=== PATIENT | male | born 1965 | race Caucasian/White ===

== ENCOUNTER 2016-12-27 06:09 | Day surgery (SDC) | payer BC ==
[2016-12-26 11:27] VITALS: BMI 22.7
[2016-12-27] MEDS ORDERED: LIDOCAINE 1%/EPI 1:100000 (50 ML MULTI DOSE VIAL) ONE (07:19)
[2016-12-27] MEDS ORDERED: BUPIVACAINE HCL/PF 0.5% (5MG/ML) 10 ML VIAL ONE (07:20)
[2016-12-27] MEDS ORDERED: MIDAZOLAM HCL 2 MG/2 ML SINGLE DOSE VIAL ONE (08:11)
[2016-12-27] MEDS ORDERED: PROPOFOL 20 ML ONE ×2 (08:15)
--- NOTE | 2016-12-27 08:28 | HP ---
[facility]ellite [facility] - Chief Complaint Chief Complaint: left knee pain - Past Medical History Allergies/Adverse Reactions: Allergies Allergy/AdvReac Type Severity Reaction Status Date / Time Neuromuscular Blockers, Allergy Mild Rash Verified 12/27/16 06:26 Steroidal [Steroidal Neuromuscular Blockers] - Current Medications Current Medications: Home Medications Medication Instructions Recorded Oxycodone HCl/Acetaminophen 1 - 2 tab PO Q6H #50 tab MDD 8 12/27/16 [Percocet 5-325 mg Tablet -] Satellite Physical Exam - Physical Examination Vital Signs: Vital Signs Period Temp Pulse Resp BP Sys/Delarosa Pulse Ox Last 24 Hr 98.5 F 86 18 105/69 97 General Appearance: Well Nourished, Well Developed, Alert & Oriented x3 ENT: Clear Lung: Normal air movement Heart: Regular rate & rhythm Extremities: Other (left knee- + swelling, + ttp, decr rom, + mcmurrays, +apleys , nvi MRI + mmt, lmt) Neurological: Intact, Alert, Oriented Satellite Impression/Plan - Impression/Plan Impression: left knee internal derangement Operative Procedure: left knee arthroscopy Date to be Performed: 12/27/16
[2016-12-27] MEDS ORDERED: LIDOCAINE 2%/EPINEPHRINE 1:100000 (50 ML MD VIAL) INF ONE (08:31)
[2016-12-27] MEDS ORDERED: BUPIVACAINE HCL/PF 0.5% (5MG/ML) 10 ML VIAL IJ ONE (08:31)
--- NOTE | 2016-12-27 08:59 | OP ---
Operative Note - Note: Operative Date: 12/27/16 ([facility]) Pre-Operative Diagnosis: left knee internal derangement Operation: left knee arthroscopy PMM, PLM Post-Operative Diagnosis: Same as Pre-op Surgeon: Justin Grimaldo [employer] Senior Sergeant: Dale Coello Anesthesia: General, Local Specimens Removed: shavings Estimated Blood Loss (mls): 5 Operative Report Dictated: Yes
[2016-12-27] MEDS ORDERED: ONDANSETRON 4 MG/2 ML VIAL IVPUSH PRN (09:13)
[2016-12-27] MEDS ORDERED: oxyCODONE HCL 5 MG TABLET PO PRN (09:13)
[2016-12-27] MEDS ORDERED: PROMETHAZINE HCL 25 MG/1 ML VIAL IVPUSH PRN (09:13)
[2016-12-27] MEDS ORDERED: LACTATED RINGERS SOLUTION 1,000 ML IV SCH (09:15)
[2016-12-27 10:07] VITALS: TEMP 98
[2016-12-27 12:45] VITALS: BP 124/82; PULSE 78
--- NOTE | 2016-12-27 14:06 | OP ---
DATE OF OPERATION: 12/27/2016 PREOPERATIVE DIAGNOSIS: Internal derangement left knee. POSTOPERATIVE DIAGNOSIS: Internal derangement left knee. PROCEDURE PERFORMED: Arthroscopy left knee with partial medial and lateral meniscectomy. SURGICAL ATTENDING: Justin Grimaldo MD MATERIALS HANDLING EQUIPMENT OPERATOR: Dale Coello ANESTHESIA: General with LMA. CLOSURE: 4-0 nylon. COMPLICATIONS: None. CONDITION: To the recovery room in stable condition. DESCRIPTION OF PROCEDURE: The patient was taken to the operating room on December 27, 2016. General anesthesia with LMA was administered by the anesthesiologist. The left lower extremity was prepped and draped in the usual sterile fashion. Superolateral, mediolateral and infrapatellar portal sites were infiltrated with 1% Xylocaine with epinephrine. A superolateral portal was made with a 15 blade, followed by a blunt trocar. The knee was aspirated and inflated with a cocktail of 10 mL of 1% Xylocaine, 10 mL of 0.5% Marcaine, 20 mL of arthroscopic saline. Medial and lateral infrapatellar portals were then made with a 15 blade, followed by a blunt trocar. The scope was placed in the lateral infrapatellar portal, up into the suprapatellar pouch. The pouch was visualized to be clean. The medial and lateral gutters were visualized to be clean. The undersurface of the patella and trochlea were found to be intact. With valgus stress on the knee, the medial compartment was entered. The medial meniscus was visualized, probed and found to have a big flap tear posteriorly. This was debrided back to smooth stable meniscal tissue using a meniscal biter and arthroscopic shaver. The medial femoral condyle was run and found to be intact, as was the medial tibial plateau. At 90 degrees, the ACL was visualized, probed and found to be intact. In the figure-4 position, the lateral compartment was entered. The lateral meniscus was found to have some radial tears of its mid substance. This was debrided back to smooth, stable meniscal tissue using meniscal biter and arthroscopic shaver. The lateral femoral condyle was run and found to be intact, as well as the lateral tibial plateau. The knee was irrigated with copious amounts of irrigation. The portals were closed using 4-0 nylon. Prior to closure, 20 mL of 0.5% Marcaine was infused through the outflow portal prior to pulling the trocar. A sterile pressure dressing was placed over the knee. The patient was awakened from anesthesia and transferred to the recovery room in stable condition, without complication. Estimated blood loss was negligible. Pam TOWNSEND/[id number] MTDD
--- NOTE | 2016-12-28 16:19 | PATH ---
Surgical Pathology Report Patient Name: MARIANA JORGENSEN [facility]. Rec. #: [id number] /Age/Gender: 1965 (Age: 51) / M Account: [id number] Location: [facility] SURGICAL Taken: 12/27/2016 Received: 12/27/2016 Reported: 12/28/2016 Physicians: Justin Grimaldo M.D. 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 Electronically Signed Hardeep Morillo M.D. Gross Description Received in formalin, labeled "left knee shavings" is a 3.0 x 2.5 x 0.4 cm aggregate of swift-yellow soft tissue fragments. A door to door sales representative portion is submitted in one cassette. /12/27/201612/27/2016
== END 2016-12-27 12:10 | disposition home or self-care (01) ==
LOC: JASU-SURG 06:09
PROVIDERS: ATTEND Orthopaedic Surgery
PROC: 0SBD4ZZ Excision of Left Knee Joint, Percutaneous Endoscopic Approach (ICD-10-PCS; 2016-12-27)
PROC: 0SBD4ZZ Excision of Left Knee Joint, Percutaneous Endoscopic Approach (ICD-10-PCS; principal; 2016-12-27 08:00)
DX: M23.201 Derangement of unspecified lateral meniscus due to old tear or injury, left knee (principal); M23.204 Derangement of unspecified medial meniscus due to old tear or injury, left knee
CPT/HCPCS: 88304-TC; 94760

== ENCOUNTER 2020-02-11 14:30 | Emergency (ER) | payer BC, OTHER ==
[2020-02-11 14:38] VITALS: BP 114/77; PULSE 79; TEMP 98.4; BMI 22.7
--- NOTE | 2020-02-11 14:52 | PDOC ---
History of Present Illness - General Chief Complaint: Chest Pain Stated Complaint: CHEST PAIN Time Seen by Provider: 02/11/20 14:51 History Source: Patient Exam Limitations: No Limitations - History of Present Illness Initial Comments: 02/11/20 15:06 54yM w PMHx current smoker presenting w 6d constant mild L anterior chest pressure. Mechanical fall 2wk ago on L side while cutting trees, no head trauma. Didnt take any meds for pain. never had similar chest pressure before. Extensive fam cardiac hx of [place]. Took 2 long car rides this past week. Denies leg swelling, fever, cough, n/v, SOB, ABD pain. Past History - Medical History Allergies/Adverse Reactions: Allergies Allergy/AdvReac Type Severity Reaction Status Date / Time Neuromuscular Blockers, Allergy Mild Rash Verified 02/11/20 14:37 Steroidal [Steroidal Neuromuscular Blockers] Home Medications: Ambulatory Orders Oxycodone HCl/Acetaminophen [Percocet 5-325 mg Tablet -] 1 - 2 tab PO Q6H #50 tab MDD 8 12/27/16 Anemia: No Asthma: No Cancer: No Cardiac Disorders: No CVA: No COPD: No CHF: No Dementia: No Diabetes: No GI Disorders: No Disorders: No HTN: No Hypercholesterolemia: No Liver Disease: No Seizures: No Thyroid Disease: No - Surgical History Neurologic Surgery: Yes (due to cerebral edema 2011) Orthopedic Surgery: Yes (LEFT KNEE/right) - Psycho-Social/Smoking History Smoking Status: Yes Smoking History: Current every day smoker Have you smoked in the past 12 months: Yes Number of Cigarettes Smoked Daily: 10 Information on smoking cessation initiated: No 'Breaking Loose' booklet given: 12/26/16 - Substance Abuse Hx (Audit-C & DAST Scrn) How often the patient has a drink containing alcohol: Monthly or less Number of drinks the patient has on a typical day: 3 or 4 How often the patient has six or more drinks on one occasion: Never Score: In Men: 4 or > Positive; In Women: 3 or > Positive: 2 Screen Result (Pos requires Nsg. Audit-10AR): Negative In the last yr the pt used illegal drug/Rx for NonMed reason: No Score: Yes response is considered Positive: 0 Screen Result (Positive result requires Nsg. DAST-10): Negative Cardiac Specific PMH - Complaint Specific PMHX Pacemaker: No Review of Systems - Review of Systems Constitutional: No: Chills, Fever HEENTM: No: Eye Pain, Nose Congestion Respiratory: No: Cough, Shortness of Breath Cardiac (ROS): Yes: Chest Pain. No: Palpitations ABD/GI: No: Abdominal Distended, Constipated, Diarrhea, Nausea, Vomiting : No: Burning, Dysuria Musculoskeletal: No: Back Pain, Joint Pain Integumentary: No: Bruising, Flushing Neurological: No: Headache, Seizure Psychiatric: No: Anxiety, Depression Endocrine: No: Intolerance to Cold, Intolerance to Heat Hematologic/Lymphatic: No: Anemia, Blood Clots *Physical Exam - Vital Signs Last Vital Signs Temp Pulse Resp BP Pulse Ox 98.4 F 79 18 114/77 100 02/11/20 14:34 02/11/20 14:34 02/11/20 14:34 02/11/20 14:34 02/11/20 14:34 - Physical Exam General Appearance: Yes: Nourished, Appropriately Dressed, Mild Distress HEENT: positive: EOMI, CARISSA, Normal Voice, Hearing Grossly Normal. negative: Scleral Icterus (R), Scleral Icterus (L) Respiratory/Chest: positive: Chest Tender (L anterior chest), Lungs Clear, Normal Breath Sounds. negative: Respiratory Distress, Crackles, Rales, Rhonchi, Stridor, Wheezing Cardiovascular: positive: Regular Rhythm, Regular Rate, S1, S2. negative: Edema, Murmur Gastrointestinal/Abdominal: positive: Normal Bowel Sounds, Flat, Soft. negative: Tender, Organomegaly Integumentary: positive: Normal Color, Warm. negative: Dry Neurologic: positive: Fully Oriented, Alert, Normal Mood/Affect, Normal Response, Responsive. negative: Confused, Disoriented Heart Score/ECG Review - History History: Slightly suspicious - Electrocardiogram EKG: Normal - Age Age: 45-65 - Risk Factors Risk Factors Heart Score: No Hx Hypercholesterolemia, No Hx Hypertension, No Hx Diabetes, Yes Smoking History, Yes Positive family hx of cardiac disease, No Hx Obesity Based on the list above the patient has:: 1-2 risk factors - Troponin Troponin: </= normal limit - Score Heart Score - Total: 2 ED Treatment Course - LABORATORY CBC & Chemistry Diagram: 02/11/20 03:40 02/11/20 03:40 - ADDITIONAL ORDERS Additional order review: Laboratory Results 02/11/20 02/11/20 03:40 03:40 D-Dimer 353 Sodium 143 Potassium 4.4 Chloride 112 H Carbon Dioxide 25 Anion Gap 5 L BUN 10.2 Creatinine 0.8 Est GFR (CKD-EPI)AfAm 116.56 Est GFR (CKD-EPI)NonAf 100.57 Random Glucose 62 L Calcium 8.7 Total Bilirubin 0.7 AST 43 H ALT 39 Alkaline Phosphatase 88 Creatine Kinase 181 Creatine Kinase Index 1.1 CK-MB (CK-2) 2.1 Troponin I < 0.02 Total Protein 7.2 Albumin 3.5 02/11/20 03:40 RBC 4.96 MCV 91.1 MCHC 33.7 RDW 13.6 D MPV 6.5 L Neutrophils % 53.3 Lymphocytes % 28.1 Monocytes % 13.4 H Eosinophils % 4.6 H Basophils % 0.6 - RADIOLOGY Radiology Studies Ordered: Category Date Time Status CHEST PA & LAT [RAD] Stat Radiology 02/11/20 15:05 Completed - Medications Given in the ED: ED Medications Discontinued Medications Generic Name Dose Route Start Last Admin Trade Name Freq PRN Reason Stop Dose Admin Ibuprofen 600 mg 02/11/20 15:06 02/11/20 16:00 Motrin - PO 02/11/20 15:07 600 mg ONCE ONE Administration Medical Decision Making - Medical Decision Making 02/11/20 15:08 CXR - clear lung ceron, normal cardiac size EKG - NSR, HR 77, QTc 411, peaked TW V3-4, no ST changes --- 54yM w PMHx current smoker presenting w 6d constant mild L anterior chest pressure. Likely costochondritis (tender to palpation). Low concern for ACS (no ST changes, neg trop) vs PNA (clear lungs) vs PE (d-dimer 353 wnl) Given ibuprofen DC home w cards referral Discharge - Discharge Information Problems reviewed: Yes Clinical Impression/Diagnosis: Costochondral chest pain Condition: Improved Disposition: HOME - Follow up/Referral Referrals: Roc Renteria [Primary Care Provider] - Karl Beckett MD [Staff Physician] - - Patient Discharge Instructions Patient Printed Discharge Instructions: DI for Atypical Chest Pain Additional Instructions: Your workup did not show anything concerning Take ibuprofen or tylenol if you have pain Follow up with the referred board worker Dr Beckett - Post Discharge Activity
[2020-02-11] MEDS ORDERED: IBUPROFEN 600 MG TABLET (FP) PO ONE ×2 (15:06→15:29)
[2020-02-11 15:52] LABS: BASO % 0.6 % (0-2.0); EOS % 4.6 % (0-4.5); HEMATOCRIT 45.2 % (35.4-49); HEMOGLOBIN 15.2 GM/dL (11.7-16.9); LYMPH % 28.1 % (8-40); MCH 30.7 pg (25.7-33.7); MCHC 33.7 g/dl (32.0-35.9); MEAN CELL VOLUME 91.1 fl (80-96); MEAN PLT VOLUME 6.5 fl (7.5-11.1); MONO % 13.4 % (3.8-10.2); NEUT % 53.3 % (42.8-82.8); PLATELET COUNT 308 K/MM3 (134-434); RBC 4.96 M/mm3 (4.00-5.60); RDW 13.6 % (11.9-15.9); WHITE BLOOD COUNT 7.9 K/mm3 (4.0-10.0)
[2020-02-11 16:23] LABS: ALBUMIN 3.5 g/dl (3.4-5.0); ALK PHOS 88 U/L (45-117); ANION GAP 5 MMOL/L (8-16); BILIRUBIN,TOTAL 0.7 mg/dL (0.2-1); BLOOD UREA NITROGEN 10.2 mg/dL (7-18); CALCIUM 8.7 mg/dL (8.5-10.1); CHLORIDE 112 mmol/L (98-107); CO2 25 mmol/L (21-32); CREATININE 0.8 mg/dL (0.55-1.3); GLUCOSE,RANDOM 62 mg/dL (74-106); POTASSIUM 4.4 mmol/L (3.5-5.1); SGOT/AST 43 U/L (15-37); SGPT/ALT 39 U/L (13-61); SODIUM 143 mmol/L (136-145); TOT PROT 7.2 g/dl (6.4-8.2)
--- NOTE | 2020-02-11 16:53 | PDOC ---
Documentation entered by Chana Neri SCRIBE, acting as scribe for Tala Butler MD. Tala Butler MD: This documentation has been prepared by the scribeDaron Ana, SCRIBE, under my direction and personally reviewed by me in its entirety. I confirm that the documentation accurately reflects all work, treatment, procedures, and medical decision making performed by me. Attending Attestation - Resident Resident Name: ManuelaCole - ED Attending Attestation I have performed the following: I have examined & evaluated the patient, The case was reviewed & discussed with the resident, I agree w/resident's findings & plan, Exceptions are as noted - HPI HPI: 02/11/20 15:25 Patient is a 54 year old male with a significant past medical history of smoking who presents to the ED with chest pressure x6 days. Patient described that pain as being constant and towards the left side of anterior chest. Patient disclosed he was cutting down trees 2 weeks ago and fell - took nothing for the pain. Patient denies: recent travel, any head trauma, fever, nausea, vomiting, cough, SOB, abdominal pain, lower extremity swelling, or any other related symptoms Allergies: neuromuscular blockers, steroidal Family history: Cardiac [place] - Physicial Exam PE: General: well appearing, NAD HEENT: NCAT Chest: CTAB, good air entry, no wheezes rales or rhonchi, +L sided anterior reproducible chest wall tenderness CVS: +s1 s2, RRR Neuro: Aox3, ambualtory with steady gait, no focal deficits - Medical Decision Making 02/11/20 16:51 54 yo M with atypical chest pain, EKG without ischemic changes, unlikely ACS, low suspicion for PE however cannot PERC out, most likely msk pain given h/o preceding trauma and pain reproducible on exam. Plan: -labs -cxr -pain control as needed -reassess, if labs and imaging unremarkable will d/c with retunr precautions, recommend cardiology f/u This clinical encounter is taking place during a federal and state health care emergency attributable to the novel Vásquez Virus pandemic. The Level Vial Marker of the Department of Health and Human Services has declared, pursuant to the Public Health Service Act 319F-3 (42 U.S.C. 247d-6d), that a covered persons activities related to medical countermeasures against COVID-19 will be immune from liability under Federal and State law. Discharge - Discharge Information Problems reviewed: Yes Clinical Impression/Diagnosis: Costochondral chest pain Condition: Improved Disposition: HOME - Follow up/Referral Referrals: Roc Renteria [Primary Care Provider] - Karl Beckett MD [Staff Physician] - - Patient Discharge Instructions Patient Printed Discharge Instructions: DI for Atypical Chest Pain Additional Instructions: Your workup did not show anything concerning Take ibuprofen or tylenol if you have pain Follow up with the referred office services clerk Dr Beckett - Post Discharge Activity
--- NOTE | 2020-02-12 14:51 | EKG ---
Test Reason : Blood Pressure : / mmHG Vent. Rate : 077 BPM Atrial Rate : 077 BPM P-R Int : 148 ms QRS Dur : 092 ms QT Int : 364 ms P-R-T Axes : 065 067 073 degrees QTc Int : 411 ms NORMAL SINUS RHYTHM NORMAL ECG WHEN COMPARED WITH ECG OF 29-NOV-2009 08:42, NO SIGNIFICANT CHANGE WAS FOUND Confirmed by ABIODUN RIVERA MD ([id number]) on 02/12/2020 2:51:36 PM Referred By: Confirmed By:ABIODUN RIVERA MD
== END 2020-02-11 16:50 | disposition home or self-care (01) ==
LOC: JER 14:30
DX: R07.89 Other chest pain (principal)
CPT/HCPCS: 36415; 71046-TC-FY; 80053; 82550; 82553; 84484; 85025; 85379; 93005; 93010; 99285-25

== ENCOUNTER 2020-03-15 11:24 | Emergency (ER) | payer BC ==
[2020-03-15 11:33] VITALS: BMI 23.5
[2020-03-15] MEDS ORDERED: morphine CARPU-JECT 2 MG/1 ML DISP.SYRIN IVPUSH ONE (11:37)
[2020-03-15] MEDS ORDERED: MORPHINE SULFATE 2 MG/ML VIAL ONE (11:48)
--- NOTE | 2020-03-15 11:55 | PDOC ---
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 He reports bumping his head but denies AC use or LOC. He denies any chest pain, shortness of breath, abdominal pain or any other complaints. He was able to get up and walk and drive himself to the ER. He took a vicodin prior to arrival. ROS GENERAL/CONSTITUTIONAL: No fever or chills. No weakness. HEAD, EYES, EARS, NOSE AND THROAT: No change in vision. No ear pain or discharge. No sore throat. CARDIOVASCULAR: No chest pain or shortness of breath RESPIRATORY: No cough, wheezing, or hemoptysis. GASTROINTESTINAL: No nausea, vomiting, diarrhea or constipation. GENITOURINARY: No dysuria, frequency, or change in urination. MUSCULOSKELETAL: + joint or muscle swelling or pain. No neck or back pain. SKIN: No rash NEUROLOGIC: No headache, vertigo, loss of consciousness, or change in strength/sensation. ENDOCRINE: No increased thirst. No abnormal weight change HEMATOLOGIC/LYMPHATIC: No anemia, easy bleeding, or history of blood clots. ALLERGIC/IMMUNOLOGIC: No hives or skin allergy. PE GENERAL: Awake, alert, and fully oriented, in no acute distress HEAD: No signs of trauma, normocephalic, atraumatic EYES: PERRLA, EOMI, sclera anicteric, conjunctiva clear ENT: oropharynx clear without exudates. Moist mucosa NECK: Normal ROM, supple LUNGS: No distress, speaks full sentences, clear to auscultation bilaterally HEART: Regular rate and rhythm, normal S1 and S2, no murmurs, rubs or gallops, peripheral pulses normal and equal bilaterally. ABDOMEN: Soft, nontender, No guarding, no rebound. No masses EXTREMITIES : + L wrist NV intact, ttp to the radial aspect of the wrist, no snuffbox ttp, strength 2/5 due to pain NEUROLOGICAL: Cranial nerves II through XII grossly intact. Normal speech, normal gait, no focal sensorimotor deficits SKIN: Warm, Dry, normal turgor, no rashes or lesions noted Assessment and Plan 54 year old man with a history of viral encephalititis in 2010 who presents with L wrist pain after a 10ft fall from a ladder while working on the roof. Consider sprain vs fx vs dislocation cbc, cmp, coags, type adn screen XR L wrist and forearm, CXR Patient refuses head CT at this time morphine 2 for pain up dose as needed distal ulnar and radial fx splint applied and Ortho follow up given Patient ready for discharge Cheryl Kaba, PGY3 Emergency Medicine Past History - Medical History Allergies/Adverse Reactions: Allergies Allergy/AdvReac Type Severity Reaction Status Date / Time Neuromuscular Blockers, Allergy Mild Rash Verified 02/11/20 14:37 Steroidal [Steroidal Neuromuscular Blockers] Home Medications: Ambulatory Orders NK [No Known Home Medication] 03/15/20 Anemia: No Asthma: No Cancer: No Cardiac Disorders: No CVA: No COPD: No CHF: No Dementia: No Diabetes: No GI Disorders: No Disorders: No HTN: No Hypercholesterolemia: No Liver Disease: No Seizures: No Thyroid Disease: No - Surgical History Neurologic Surgery: Yes (due to cerebral edema 2011) Orthopedic Surgery: Yes (LEFT KNEE/right) - Psycho-Social/Smoking History Smoking Status: Yes Smoking History: Former smoker Have you smoked in the past 12 months: No Number of Cigarettes Smoked Daily: 10 Information on smoking cessation initiated: No 'Breaking Loose' booklet given: 12/26/16 - Substance Abuse Hx (Audit-C & DAST Scrn) How often the patient has a drink containing alcohol: Never Score: In Men: 4 or > Positive; In Women: 3 or > Positive: 0 Screen Result (Pos requires Nsg. Audit-10AR): Negative In the last yr the pt used illegal drug/Rx for NonMed reason: No Score: Yes response is considered Positive: 0 Screen Result (Positive result requires Nsg. DAST-10): Negative *Physical Exam - Vital Signs Last Vital Signs Temp Pulse Resp BP Pulse Ox 98 F 112 H 24 H 136/88 99 03/15/20 11:30 03/15/20 11:30 03/15/20 11:30 03/15/20 11:30 03/15/20 11:30 ED Treatment Course - LABORATORY CBC & Chemistry Diagram: 03/15/20 11:53 03/15/20 11:53 - RADIOLOGY Radiology Studies Ordered: Category Date Time Status CHEST X-RAY PORTABLE* [RAD] Stat Radiology 03/15/20 11:37 Ordered FOREARM- LEFT [RAD] Stat Radiology 03/15/20 11:37 Ordered WRIST W/HAND-LEFT* [RAD] Stat Radiology 03/15/20 11:37 Ordered - Medications Given in the ED: ED Medications Discontinued Medications Generic Name Dose Route Start Last Admin Trade Name Siva PRN Reason Stop Dose Admin Morphine Sulfate 2 mg 03/15/20 11:37 03/15/20 11:51 Morphine Injection - IVPUSH 03/15/20 11:38 2 mg ONCE ONE Administration Discharge - Discharge Information Problems reviewed: Yes Clinical Impression/Diagnosis: Radius distal fracture Condition: Improved Disposition: HOME - Follow up/Referral Referrals: Roc Renteria [Primary Care Provider] - Dale Coello MD [Staff Physician] - - Patient Discharge Instructions Patient Printed Discharge Instructions: How to Use a Sling, Colles Fracture Additional Instructions: 54-year-old male status post fall from significant height complaining of left wrist pain. Does have signs of minimal head trauma denies any LOC plan is to CT head rule out any intra cranial injury x-rays of the left forearm or wrist chest x-ray patient is refusing head CT is aware of the risks and benefits likely has a distal forearm fracture or splinting tetanus will be given Motrin for pain control - Post Discharge Activity
[2020-03-15] MEDS ORDERED: DIPHTH,PERTUSS(ACELL),TET 0.5 ML DISP.SYRIN IM ONE ×2 (11:57→12:42)
--- NOTE | 2020-03-15 12:16 | PDOC ---
Documentation entered by Amando Skinner SCRIBE, acting as scribe for Charmaine Castro MD. Charmaine Castro MD: This documentation has been prepared by the eleanoribe, Amando Skinner SCRIBE, under my direction and personally reviewed by me in its entirety. I confirm that the documentation accurately reflects all work, treatment, procedures, and medical decision making performed by me. Attending Attestation - Resident Resident Name: Cheryl Kaba - ED Attending Attestation I have performed the following: I have examined & evaluated the patient, The case was reviewed & discussed with the resident, I agree w/resident's findings & plan, Exceptions are as noted - HPI HPI: 03/15/20 12:16 The patient is a 54 year old male with no significant past medical history who presents to the emergency department for evaluation of left wrist pain that began s/p a 5-10ft mechanical fall today off a ladder today. The patient reports he hit his head and landed on his side but tried to stop the fall with his hand. Denies LOC, neck/back pain, numbness, or paresthesias . The patient denies chest/abdominal/back pain, cough, and shortness of breath. Denies fever, chills, nausea, vomiting, and/or any GI symptoms. Denies any symptoms. Denies any other symptoms. Allergies: neuromuscular blockers, steroidal Social Hx: The patient is a current smoker Surgical Hx: left knee arthroscopy Family history: Cardiac [place] PCP: Roc Renteria Belt Loop Machine Operator: Dr Beckett - Physicial Exam PE: 03/15/20 12:13 Awake alert no acute distress is noted for a small area of hematoma over the left spine tenderness bilaterally heart is regular gallops abdomen soft nation left upper extremity demonstrates a distal forearm dorsally. He has less median and ulnar pulses distally is neurovascular intact examination of the elbow and shoulder are nontender full range of motion skin is warm and dry there are few noted abrasions over his anterior lower extremity as well as his left lower ab domen neurologic patient is awake alert and oriented x3 GCS 15 - Medical Decision Making 03/15/20 12:15 4-year-old male status post fall from significant height complaining of left wrist pain. Does have signs of minimal head trauma denies any LOC plan is to CT head rule out any intracranial injury x-rays of the left forearm or wrist chest x-ray patient is refusing head CT is aware of the risks and benefits likely has a distal forearm fracture or splinting tetanus will be given Motrin for pain control 03/15/20 13:13 xray with comminuted distal radius fracture, ulnar styloid. nondisplaced. but impacted slightly. called richard, pt requesting splint and leave does not want to wait for call back. has had mulitple surgeries with richard in the past. placed volar splint left wrist. Discharge - Discharge Information Problems reviewed: Yes Clinical Impression/Diagnosis: Radius distal fracture Condition: Improved Disposition: HOME - Admission No - Follow up/Referral Referrals: Roc Renteria [Primary Care Provider] - Dale Coello MD [Staff Physician] - - Patient Discharge Instructions Patient Printed Discharge Instructions: How to Use a Sling, Colles' Fracture Additional Instructions: 54-year-old male status post fall from significant height complaining of left wrist pain. Does have signs of minimal head trauma denies any LOC plan is to CT head rule out any intra cranial injury x-rays of the left forearm or wrist chest x-ray patient is refusing head CT is aware of the risks and benefits likely has a distal forearm fracture or splinting tetanus will be given Motrin for pain control - Post Discharge Activity
[2020-03-15 12:18] LABS: BASO % 0.8 % (0-2.0); EOS % 2.8 % (0-4.5); HEMATOCRIT 46.7 % (35.4-49); HEMOGLOBIN 16.2 GM/dL (11.7-16.9); LYMPH % 19.5 % (8-40); MCH 32.1 pg (25.7-33.7); MCHC 34.7 g/dl (32.0-35.9); MEAN CELL VOLUME 92.4 fl (80-96); MEAN PLT VOLUME 6.8 fl (7.5-11.1); MONO % 11.3 % (3.8-10.2); NEUT % 65.6 % (42.8-82.8); PLATELET COUNT 327 K/MM3 (134-434); RBC 5.05 M/mm3 (4.00-5.60); RDW 13.7 % (11.9-15.9); WHITE BLOOD COUNT 10.2 K/mm3 (4.0-10.0)
[2020-03-15 12:22] LABS: INR 0.92 (0.83-1.09); PROTHROMBIN TIME (PATIENT) 10.8 SEC (9.7-13.0)
[2020-03-15 12:25] LABS: ACTIVATED PTT 29.3 SECONDS (25.2-36.5)
[2020-03-15 12:34] LABS: ALBUMIN 3.9 g/dl (3.4-5.0); BILIRUBIN,TOTAL 0.8 mg/dL (0.2-1); BLOOD UREA NITROGEN 10.7 mg/dL (7-18); CALCIUM 9.3 mg/dL (8.5-10.1); CREATININE 1.1 mg/dL (0.55-1.3)
[2020-03-15 13:36] VITALS: BP 136/68; PULSE 89; TEMP 98.5
== END 2020-03-15 13:37 | disposition home or self-care (01) ==
LOC: JER 11:24
PROC: 3E033NZ Introduction of Analgesics, Hypnotics, Sedatives into Peripheral Vein, Percutaneous Approach (ICD-10-PCS; principal; 2020-03-15)
DX: S52.502A Unspecified fracture of the lower end of left radius, initial encounter for closed fracture (principal)
CPT/HCPCS: 36415; 71045-TC-FY; 73090-TC-LT-FY; 73110-TC-LT-FY; 73130-TC-LT-FY; 80053; 85025; 85610; 85730; 86850; 86900; 86901; 99285-25